=== PATIENT | female | born 1955 ===

== ENCOUNTER 2023-06-23 09:46 | Outpatient (REF) | payer MEDICARE, SELFPAY | END 2023-06-23 09:47 | disposition home or self-care (01) | LOC: HO.HOSX 09:46 | PROVIDERS: Visit Provider Orthopaedic Surgery | DX: Z96.642 Presence of left artificial hip joint (principal) | CPT/HCPCS: 73502; 99212 ==

== ENCOUNTER 2023-06-23 14:38 | Outpatient (AMB) | payer MEDICARE, SELFPAY ==
--- NOTE | 2023-06-23 14:45 | MHC.OFFVIS ---
Intake Vital Signs 06/23/23 15:07 Height 5 ft 4 in Weight 170 lb BMI 29.2 Intake Visit Reasons: F/U LT [place] 2019 Intake Note: Mariluz 68 yr old female presents today as anew patient to re-establish care with Dr. Metzger for her left [place] from [address] Metzger. States she is here for her annual check up. States she has no major concerns. She would like to go over what she can and can't do after her hip replacement. She denies any fevers or chills. She continues with her exercise program. 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 / [employer] Physical Exam Vital Signs: BMI result Body Mass Index 29.2 Const Other: Well-nourished well-developed very friendly female awake alert and oriented x3 in no acute distress Extrem Other: Bilateral lower extremity examination shows good capillary refill, no skin lesions noted, normal sensation light touch Left hip examination shows that the surgical incision is well healed, no erythema, minimal this is a, minimal tenderness over her bursa Results Reviewed Results Reviewed: X-rays of the patient's left hip arthroplasty in good position with no signs of loosening, no acute bony abnormalities Assessment & Plan Assessment & Plan (1) Left hip pain: Code(s): M25.552 - Pain in left hip Plan: Ms. Robison continues to do very well after undergoing left total hip replacement surgery. She will continue with her exercise program. Activity restrictions were discussed at length with the patient. She does know to take antibiotics before any dental work. She will contact me prior to her annual follow-up appointment should any questions or concerns arise. Feel free to call me at any time should questions regarding her orthopedic management arise. I spent 22 minutes in reviewing the patient's records and imaging studies, seeing the patient and documenting in the medical record. Orders: Orders XR hip LT min 2V 06/23/23 M25.552 - Pain in left hip Coding Level of Care Code Est Pt Level 2 (64139) Diagnoses Left hip pain M25.552
[2023-06-23 15:07] VITALS: BMI 29.2
== END 2023-06-23 15:31 | disposition home or self-care (01) ==
PROVIDERS: PCP Internal Medicine; Visit Provider Orthopaedic Surgery
DX: M25.552 Pain in left hip (principal)
CPT/HCPCS: 99212

== ENCOUNTER 2024-06-28 14:33 | Outpatient (REF) | payer MEDICARE, SELFPAY | END 2024-06-28 14:34 | disposition home or self-care (01) | LOC: HO.HOSX 14:33 | PROVIDERS: Visit Provider Orthopaedic Surgery | DX: M25.552 Pain in left hip (principal); Z96.642 Presence of left artificial hip joint | CPT/HCPCS: 73502; 99212 ==

== ENCOUNTER 2024-06-28 14:40 | Outpatient (AMB) | payer MEDICARE, SELFPAY ==
--- NOTE | 2024-06-28 14:52 | A.OFFVIS_ITS ---
Vital Signs 06/28/24 15:03 Height 5 ft 4 in Weight 185 lb BMI 31.8 Intake Visit Reasons: ov-F/U LT [place] 2019 Intake Note: Mariluz is a 69 year old female that presents today for a LT [place] follow up 2019. She reports mild intermittent discomfort along the lateral aspect of her left hip. She also underwent low back surgery several years ago. She reports mild to moderate intermittent discomfort in her back as well. She continues with her exercise program. She is not take any medicines for her discomfort. 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 / [employer] Physical Exam Vital Signs: BMI result Body Mass Index 31.8 Const Other: Well-nourished well-developed very friendly female awake alert and oriented x3 in no acute distress Extrem Other: Bilateral lower extremity examination shows good capillary refill, no skin lesions noted, normal sensation light touch Left hip examination shows that the surgical incision is well healed, no erythema, mild tenderness over her bursa, no overlying skin lesions, minimal discomfort with range of motion Results Reviewed Results Reviewed: X-rays of the patient's left hip show a total hip arthroplasty in good position with no signs of loosening, no acute bony abnormalities Assessment & Plan Assessment & Plan (1) Left hip pain: Code(s): M25.552 - Pain in left hip Category: Medical Plan Ms. Robison continues to do well after undergoing left total hip replacement surgery. She will continue with her home exercise program. She does know to take antibiotics before any dental work. She will contact me prior to her annual follow-up appointment should any questions or concerns arise. Feel free to call me at any time should questions regarding her orthopedic management arise. I spent 20 minutes in reviewing the patient's records and imaging studies, seeing the patient and documenting in the medical record. Orders: Orders XR hip LT min 2V 06/28/24 M25.552 - Pain in left hip Medications: New amoxicillin Take four caps (2,000 mg) one hour before any dental work 2,000 mg (4 x 500 mg) PO ONCE 20 caps 3RF Coding Level of Care Code Est Pt Level 3 (74713) Complex EM visit Add On G2211 Diagnoses Left hip pain M25.552
[2024-06-28 15:03] VITALS: BMI 31.8
== END 2024-06-28 15:35 | disposition home or self-care (01) ==
PROVIDERS: PCP Internal Medicine; Visit Provider Orthopaedic Surgery
DX: M25.552 Pain in left hip (principal); Z96.642 Presence of left artificial hip joint
CPT/HCPCS: 99213; G2211